=== PATIENT | female | born 1980 | race Caucasian/White ===

== ENCOUNTER → 2022-01-10 | Outpatient (CLI) | payer MEDICAID, SELFPAY ==
[2022-01-19 14:50] LABS: HPV APTIMA, High Risk Negative (Negative)
== END | disposition home or self-care (01) ==
PROVIDERS: Visit Provider Nurse Practitioner Women's Health
DX: Z12.4 Encounter for screening for malignant neoplasm of cervix (principal)
CPT/HCPCS: 87624; 88175; G0145

== ENCOUNTER → 2022-02-09 | Outpatient (CLI) | payer MEDICAID, SELFPAY ==
--- NOTE | 2022-02-09 12:24 | BI_ITS ---
MAMMOGRAPHY - BILATERAL SCREENING REASON FOR EXAM: Female, 41 years old. Routine annual screening examination. PERTINENT HISTORY: Non-contributory. Prior bilateral breast reduction surgery. TECHNIQUE: Digital bilateral breast uday (3D mammographic acquisition) in the CC and MLO projections. 2-D mediolateral oblique (MLO) and craniocaudad (CC) views of both breasts were obtained. CAD: Full Field Digital Mammography with Computer Added Detection was performed. COMPARISON: None. Baseline examination. FINDINGS: Breast Composition: There are scattered areas of fibroglandular density. There are no dominant masses or suspicious calcifications. Small benign appearing bilateral axillary lymph nodes. No other significant abnormalities are identified. BI/SCRN MAMM (CAD)W/UDAY BILAT IMPRESSION: Negative screening mammogram. Yearly followup mammogram recommended. (A) ASSESSMENT CATEGORY: BIRADS Category 2: Benign. A letter regarding these results will be sent to the patient by the facility within 30 days. Approximately 10% of breast cancers are not detected by mammography. A normal mammogram should not delay biopsy of a clinically suspicious abnormality. [id number] Electronically Signed: Jacky Harmon MD at 13:04 EST ,
== END | disposition home or self-care (01) ==
LOC: OPBI 12:20
PROVIDERS: Referring Provider Nurse Practitioner Women's Health; Visit Provider Nurse Practitioner Women's Health
DX: Z12.31 Encounter for screening mammogram for malignant neoplasm of breast (principal)
CPT/HCPCS: 77063; 77067

== ENCOUNTER → 2022-02-13 | Outpatient (CLI) | payer MEDICAID, SELFPAY ==
--- NOTE | 2022-02-13 12:30 | US_ITS ---
STUDY: ULTRASOUND OF THE FEMALE PELVIS - COMPLETE REASON FOR EXAM: Female, 41 years old. Menorrhagia LMP: 01/13/2022 TECHNIQUE: Transabdominal and Transvaginal TECHNICAL QUALITY: Adequate. COMPARISON: None. FINDINGS: The uterus is anteverted and is in a midline position. The uterus measures 10.9 x 6.3 x 5.1 cm. Normal uterine cervix. The endometrium measures 6 mm in thickness, and is hyperechoic. There is no demonstrated endometrial mass. There is no demonstrated myometrial mass. I.U.D. - The patient does not have an I.U.D. The right ovary is visualized. The right ovary measures 3.6 x 3.4 x 3.3 cm. There is no right ovarian cyst or ovarian mass. There is no visualized right adnexal mass or complex lesion. There is normal arterial and normal venous vascularity. The left ovary is visualized. The left ovary measures 2.4 x 2.1 x 2.0 cm. There is no left ovarian cyst or ovarian mass. There is no visualized left adnexal mass or complex lesion. There is normal arterial and normal venous vascularity. There is no fluid in the cul-de-sac. The pre void volume of the bladder was ml. The post void volume of the bladder was ml. Polycystic ovary disease: No. US/Pelvic (Non ) IMPRESSION: Normal female pelvis. Electronically Signed: Livan Gupta MD at 17:19 EST ,
== END | disposition home or self-care (01) ==
LOC: OPUS 12:28
PROVIDERS: Visit Provider Nurse Practitioner Women's Health
DX: N92.0 Excessive and frequent menstruation with regular cycle (principal)
CPT/HCPCS: 76830; 76856

== ENCOUNTER → 2023-03-19 | Outpatient (CLI) | payer MEDICAID, SELFPAY ==
--- NOTE | 2023-03-19 | EMB_PTH ---
PATHOLOGY RESULTS PATIENT: LUPILLO YARBROUGH LOC: [facility] U#:[id number] AGE/SX: 42/F ROOM: RE03/19/[address]: KEMAL Ortega : 1980 BED: DIS: 03/19/2023 SPEC #: [id number] RECD: 03/20/23 07:34 STATUS: MELISSA ASTON #: [id number] HAWA: 03/19/23 00:[address]: Adela Gonsalez NP DEPT: SURGICAL PATHOLOGY RECD BY: Ludmila Burks ENTERED: 03/20/23 07:35 SP TYPE: ENDOM BX/C ANTONIA DR: Susy Primary Care Phys Tissues: Endometrium, NOS Uterine cervix, NOS Procedures: Surgery Specimen Level IV HEADER OPERATION: Endometrial biopsy and cervical polypectomy PRE-OP DIAGNOSIS: Abnormal uterine bleeding TISSUE SUBMITTED: A - Endometrial lining, B - Cervical polyp MICROSCOPIC DIAGNOSIS A. Endometrial biopsy: Weakly secretory endometrium and exogenous hormone effect with glandular and stromal breakdown. Focal minimal chronic endometritis. See comment. B. Cervical polyp, polypectomy: Inflamed benign endocervical polyp. NAVID:sky 03/21/2023 COMMENT A. Clinical correlation and appropriate follow up are necessary. MICROSCOPIC DESCRIPTION Slides are reviewed. GROSS DESCRIPTION A - Received in fixative is one container labeled with the patient's name and designated endometrial lining. The specimen consists of multiple fragments of hemorrhagic soft tissue mixed with bocanegra mucoid tissue that in aggregate measure 3.0 x 2.5 x 0.3 cm. The specimen is totally submitted in one cassette. B - Received in fixative is one container labeled with the patient's name and designated cervical polyp. The specimen consists of a piece of bocanegra-pink polyp measuring 0.5 x 0.3 x 0.1 cm. Also present in the container are multiple fragments of hemorrhagic mucoid tissue measuring in aggregate 1.5 x 0.5 x 0.1 cm. The entire specimen is submitted in one cassette. / NAVID:sky 03/20/2023 TC:5 CPT: [id number] x2
== END | disposition home or self-care (01) ==
LOC: LABSPEC 14:38
PROVIDERS: Referring Provider Nurse Practitioner Women's Health; Visit Provider Nurse Practitioner Women's Health
DX: N93.9 Abnormal uterine and vaginal bleeding, unspecified (principal)
CPT/HCPCS: 88305

== ENCOUNTER → 2023-12-31 | Outpatient (CLI) | payer MEDICAID, SELFPAY ==
--- NOTE | 2023-12-31 09:43 | BI_ITS ---
MAMMOGRAPHY - BILATERAL SCREENING REASON FOR EXAM: Female, 43 years old. Routine annual screening examination. PERTINENT HISTORY: Non-contributory. History of prior bilateral breast reduction surgery. TECHNIQUE: Digital bilateral breast uday (3D mammographic acquisition) in the CC and MLO projections. 2-D mediolateral oblique (MLO) and craniocaudad (CC) views of both breasts were obtained. CAD: Full Field Digital Mammography with Computer Added Detection was performed. COMPARISON: Comparison is made with prior study dated February 09, 2022. FINDINGS: Breast Composition: There are scattered areas of fibroglandular density. There are no dominant masses or suspicious calcifications. Stable small benign appearing bilateral axillary lymph nodes. No other significant abnormalities are identified. There has been no significant change since the prior study. BI/SCRN MAMM (CAD)W/UDAY BILAT IMPRESSION: Stable bilateral screening mammogram. Yearly follow-up mammogram recommended. (A) ASSESSMENT CATEGORY: BIRADS Category 2: Benign. A letter regarding these results will be sent to the patient by the facility within 30 days. Approximately 10% of breast cancers are not detected by mammography. A normal mammogram should not delay biopsy of a clinically suspicious abnormality. [id number] Electronically Signed: Jacky Harmon MD at 10:46 EDT ,
--- OUTSIDE RECORDS SUMMARY | 2023-12-31 10:11 | XMS RPT_ITS | CCD ---
Author Organization [facility] Care Team Providers Care Carpenter Helper Maintenance Name Role Phone ANÍBAL GRIJALVA Admitting Unavaila ble Encounters Encounter Date Encounter Type Care Provider Facility Start: 06-07-2021 End: 06-11-2021 ambulatory ANÍBAL GRIJALVA [facility] Payers Date Payer Category Payer Medicaid [id number] 1980 Unknown [id number] Summary Purpose Family History No Family History Records Found Advance Directives No Advanced Directives Records Found Additional Source Comments INFORMATION SOURCE (unrecogn ized section and content) DATE CREATED AUTHOR 06/12/2021 [place] [facility] FOR RECORDS PERTAINING TO PATIENTS WHO ARE OR HAVE BEEN ENROLLED IN A CHEMICAL DEPENDENCY/SUBSTANCEABUSE PROGRAM, SOME INFORMATION MAY BE OMITTED. This clinical summary was aggregated from multiple sources. Caution should be exercised in using it in the provision of clinical care. This summary normalizes information from multiple sources, and as a consequence, information in this document may materially change the coding, format and clinical context of patient data. In addition, data may be omitted in some cases. CLINICAL DECISIONS SHOULD BE BASED ON THE PRIMARY CLINICAL RECORDS. [facility] [employer] provides no warranty or guarantee of the accuracy or completeness of information in this document.
== END | disposition home or self-care (01) ==
LOC: OPBI 09:43
PROVIDERS: Referring Provider Nurse Practitioner Women's Health; Visit Provider Nurse Practitioner Women's Health
DX: Z12.31 Encounter for screening mammogram for malignant neoplasm of breast (principal)
CPT/HCPCS: 77063; 77067

== ENCOUNTER → 2024-02-04 | Outpatient (CLI) | payer MEDICAID, SELFPAY ==
--- NOTE | 2024-02-04 14:42 | US_ITS ---
INDICATION: bleeding EXAMINATION: Ultrasound US Pelvis Non OB Complete With Transvaginal Imaging TECHNIQUE: Transabdominal and transvaginal pelvic ultrasound was performed. Grayscale, spectral waveform, and color flow Doppler evaluation of the adnexa. COMPARISON: FINDINGS: UTERUS: Anteverted. The uterus measures 10.9 x 6.0 x 5.3 cm. There is no uterine mass. The endometrial stripe measures 13.2 mm in AP diameter with heterogeneity. Nabothian cysts. RIGHT OVARY: 3.1 x 2.7 x 1.9 cm. 1.7 cm cyst or dominant follicle. There is normal arterial inflow and venous outflow present in the right ovary. LEFT OVARY: 3.2 x 2.3 x 1.3 cm. Non-enlarged, normal echogenicity. There is normal arterial inflow and venous outflow present in the left ovary. FREE FLUID: None. US/Pelvic w/ Transvaginal IMPRESSION: Slightly thickened heterogeneous endometrium. Nabothian cysts. Electronically Signed: George Eddy DO at 9:59 EST Reading Location ID and State: [facility] / [place] Tel [phone], Service support ,
== END | disposition home or self-care (01) ==
LOC: US 14:41
PROVIDERS: Referring Provider Nurse Practitioner Women's Health; Visit Provider Nurse Practitioner Women's Health
DX: N92.0 Excessive and frequent menstruation with regular cycle (principal); N85.2 Hypertrophy of uterus
CPT/HCPCS: 76830; 76856

== ENCOUNTER → 2025-01-26 | Outpatient (CLI) | payer MEDICAID, SELFPAY ==
--- NOTE | 2025-01-26 17:09 | BI_ITS ---
EXAM: SCRN MAMM (CAD)W/UDAY BILAT DATE: 01/26/2025 CLINICAL HISTORY: F, Age 44 y/o , SCREENING TECHNIQUE: Procedure Code: [id number] Modality: MG Procedure: SCRN MAMM (CAD)W/UDAY BILAT COMPARISON: Prior exam(s) were compared FINDINGS: TISSUE DENSITY: The breasts are heterogeneously dense, which may obscure small masses. Bilateral Breast Mammographic Findings: No significant masses, calcifications or other abnormalities are identified. BI/SCRN MAMM (CAD)W/UDAY BILAT IMPRESSION: No mammographic evidence of malignancy. OVERALL FINAL ASSESSMENT BI-RADS 1: NEGATIVE. RECOMMENDATION: Routine annual follow-up in 1 Year Additional Recommendation none A letter with findings and recommendations will be mailed to the patient. Reading Location: [id number]
--- OUTSIDE RECORDS SUMMARY | 2025-01-27 07:34 | XMS RPT_ITS | CCD ---
Author Organization [facility] Care Team Providers Care Fishing Vessel Deckhand Name Role Phone ANÍBAL GRIJALVA Admitting Unavaila ble Wallace CAD INTERN, CAD INTERN-C Adela Attending Provider [phone] Care Physician, No Primary Primary Care Provider Unavailable Care Physician, No Primary Referring Provider Un available [place]wood CAD INTERN, CAD INTERN-C Adela Attending Provider Adela Gonsalez Attending Unavailable Care Physician, No Primary Referring Unava ilable Care Physician, No Primary Primary Care Unava ilable WallaceAdela Attending Unavailable Care Physician, No Primary Referring Unava ilable Care Physician, No Primary Primary Care Unava ilable LockwoodAdela Attending Unavailable Wallace, Adela Referring Unavailable Care Physician, No Primary Primary Care Unava ilable Wallace, Adela Attending Unavailable Wallace, Adela Referring Unavailable Care Physician, No Primary Primary Care Unava ilable Medications Current Medications Medication Drug Class(es) Dates Sig (Normalized) Sig (Original) 0.5 ml dulaglutide 3 mg/ml auto-injector (1 source) GLP-1 Receptor Agonist Start: 01-14-2023 Dulaglutide (Trulicity) 1.5 mg/0.5 mL pen injector Active 1.5 MG SC EVERY WEEK January 14, 2023 12:00am norethindrone acetate 5 mg oral tablet (1 source) Start: 03-19-2023 Norethindrone Acetate Active 5 MG PO .COMPLEX 45 March 19, 2023 12:00am 5 mg PO tid until bleeding stops X 24 hr then bid to finish Rx Completed/Discontinued Medications Medication Drug Class(es) Dates Sig (Normalized) Sig (Original) Levonorgestrel-Eth inyl Estrad (13 sources) Progestin, Estrogen, Progestin-containin g Intrauterine Device Start: 01-14-2023 End: 03-19-2023 Levonorgestrel-Ethi nyl Estrad (Altavera (28)) 0.15-0.03 mg tablet Discontinued 1 TABLET PO DAILY January 14, 2023 2:16pm March 19, 2023 2:30pm Start: 05-16-2022 End: 01-14-2023 Levonorgestrel-Ethinyl Estra d (Altavera (28)) 0.15-0.03 mg tablet Discontinued 1 TABLET PO DAILY May 16, 2022 12:00am January 14, 2023 2:16pm Start: 02-14-2022 End: 05-16-2022 take 1 tablet by mouth once daily Levonorgestrel-Ethinyl Estrad (Aviane) 0.1-20 mg-mcg tablet Discontinued 1 TABLET PO daily February 14, 2022 12:00am May 16, 2022 9:43am Start: 02-14-2022 take 1 tablet by julia th once daily Levonorgestrel-Ethinyl Estrad (Aviane) 0.1-20 mg-mcg tablet Active 1 TABLET PO daily February 14, 2022 12:00am Start: 11-28-2017 End: 01-10-2022 take 1 tablet by mouth once daily Levonorgestrel-Ethinyl Estrad (Orsythia) 0.1-20 mg-mcg tablet Discontinued 1 TABLET PO daily November 28, 2017 11:10am January 10, 2022 10:13am Start: 09-09-2017 End: 11-28-2017 take 1 tablet by mouth once daily Levonorgestrel-Ethinyl Estrad (Orsythia) 0.1-20 mg-mcg tablet Discontinued 1 TABLET PO daily 84 September 08, 2017 11:00pm November 28, 2017 11:11am Problems Active Problems Problem Classification Problem Date Documented Date Episodic/Chronic Menstrual disorders (10 sources) Menorrhagia; Translations: [Excessive and frequent menstruation with regular cycle] Onset: 03-05-2024 Chronic Other female genital disorders (4 sources) Disorder of uterine cervix; Translations: [Other specified noninflammatory disorders of cervix uteri] 01-14-2023 Episodic Other female genital disorders (3 sources) Other specified noninflammatory disorders of cervix uteri; Translations: [Other specified noninflammatory disorders of cervix] Episodic Other female genital disorders (1 source) Endocervical polyp; Translations: [Polyp of cervix uteri] 03-19-2023 Episodic Other female genital disorders (1 source) Polyp of cervix uteri; Translations: [Mucous polyp of cervix] 03-19-2023 Episodic Other screening for suspected conditions (not mental disorders or infectious disease) (1 source) Encounter for screening mammogram for malignant neoplasm of breast; Translations: [Encounter for screening mammogram for malignant neoplasm of breast] Onset: 01-11-2025 Episodic Past or Other Problems Problem Classification Problem Date Documented Da te Episodic/Chronic Other female genital disorders (1 source) Hypertrophy of uterus; Translations: [Hypertrophy of uterus] Onset: 01-29-2024 Episodic Results Test Name Value Interpretation Reference Range Facility Pelvic w/ Transvaginalon Pelvic w/ Transvaginal [facility] [address] [place], [place] [address] Pelvic w/ Transvaginal MR#: [id number] Acct: [id number] Name: LUPILLO YARBROUGH Rep #: [id number] : 1980 F 43 From: George Eddy DO PCP: Care Physician,No Primary Status: [facility] Study: Pelvic w/ Transvaginal Date of Exam: 02/04/24 Exam# [id number] Ordering Dr: Adela Gonsalez CAD INTERN CAD INTERN -C [id number] INDICATION: bleeding EXAMINATION: Ultrasound US Pelvis Non OB Complete With Transvaginal Imaging TECHNIQUE: Transabdominal and transvaginal pelvic ultrasound was performed. Grayscale, spectral waveform, and color flow Doppler evaluation of the adnexa. COMPARISON: FINDINGS: UTERUS: Anteverted. The uterus measures 10.9 x 6.0 x 5.3 cm. There is no uterine mass. The endometrial stripe measures 13.2 mm in AP diameter with heterogeneity. Nabothian cysts. RIGHT OVARY: 3.1 x 2.7 x 1.9 cm. 1.7 cm cyst or dominant follicle. There is normal arterial inflow and venous outflow present in the right ovary. LEFT OVARY: 3.2 x 2.3 x 1.3 cm. Non-enlarged, normal echogenicity. There is normal arterial inflow and venous outflow present in the left ovary. FREE FLUID: None. US/Pelvic w/ Transvaginal IMPRESSION: Slightly thickened heterogeneous endometrium. Nabothian cysts. Electronically Signed: George Eddy DO at 9:59 EST Reading Location ID and State: [facility] [place] Tel [phone], Service support , CC: KEMAL Gonsalez; No Primary Care Physician Upward Bound Director: Signed Normal [facility] [place] Office Visit Reporton 01-29-2024 [place] Office Visit Report [facility] [address], [address] [place] [address] OFFICE VISIT Date of Service: 01/29/24 MR#: [id number] Acct: [id number] Name: LUPILLO YARBROUGH Rep #: [id number] : 1980 Provider: KEMAL dominguez Age/Sex: 43/F [place] [facility] [place]: Signed Intake Vital Signs 04/22/23 10:53 01/29/24 09:47 01/29/24 09:51 Height 5 ft 5 ft 5 ft Weight: 175 lb BMI 34.2 BP 114/80 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: Annual Equities Trader Required: No Is patient in pain?: No Allergies No Known Allergies Allergy (Unverified 01/29/24 09:47) Medications ???Medication ???Instructions ???Recorded ???Confirmed ???Type progesterone micronized 100 mg 200 mg (2 x 100 mg) PO .COMPLEX 01/29/24 01/29/24 Rx capsule (Prometrium) #60 caps semaglutide 2 mg/dose (8 mg/3 mL) 2 mg subcut QWEEK 01/29/24 01/29/24 History subcutaneous pen injector Is last menstrual period known: Yes Last Menstrual Period: 01/18/24 Post menopausal: No Patient : No : No PFSH Medical History Endocervical polyp Surgical History H/O bilateral breast reduction surgery S/P Family History Mother Heart disease Seizures Brother Seizures Social History number of children: 2 current occupational status: unemployed current occupation: [employer] Smoking Status: Never smoker alcohol intake: never substance use type: does not use seatbelt use: always do you feel safe at home: Yes additional social history: Fianc???! Charly History 2 Elective abortions Hx Para 2 Spontaneous abortions Hx # Term Pregnancies Ectopic pregnancies Hx # Pregnancies Multiple births # of living children Past Pregnancies Del. Date Name GA/Weeks Outcome Route Bth Weight Gen Labor Lgth Anesthesia Del Locatn Provider FOB 08/15/01 Chava live - full term Male 01/17/06 Ofelia live - full term Female HPI Encounter for routine gynecological examination Details: LUPILLO YARBROUGH is a 43 year old who presents for annual exam. Still having irregular spotting prior to and for several days after menses. Has 2 heavy days. Failed Aviane. Altavera worked X 10 months then recurred. Neg EMB with polypectomy/benign Mar 2023. Took aygestin X 3 weeks then AUB returned. She may consider oral medication again but does not want IUD or surgical intervention. Last PAP: 2021 History of abnormal PAP: no Last mammogram: 12/2023 History of abnormal mammogram: no Colon cancer screening: age 44 Other preventative health care screenings: enc to establish Female Reproductive History Last Menstrual Period: 01/18/24 Questions: metorrhagia: Yes, sexually active: Yes, dyspareunia: No and PCB: No ROS Const Constitutional: Denies fatigue, weight gain or weight loss Cardio Card: Denies chest pain Resp Resp: Denies cough or dyspnea on exertion GI GI: Denies abdominal pain, bloating, change in stool character, constipation or vomiting : Reports as per HPI; Denies difficulty voiding, pelvic pain, urinary frequency, urinary incontinence, urinary urgency, vaginal discharge or vaginal pruritus Exam Const General: cooperative, healthy appearing, no acute distress and well developed Orientation: alert, oriented to person and oriented to place [facility] Head: normal to inspection Neck Neck: normal visual inspection Thyroid: thyroid normal Lymphatic: no lymphadenopathy noted Chest Breast inspection: normal inspection of the breasts and normal inspection of the axillae Breast palpation: normal palpation of the breasts, normal palpation of the axillae and no axillary lymphadenopathy Resp Effort Inspection: normal respiratory effort GI Palpation: soft, no masses and nontender Rectal Exam: deferred External Female Exam: normal external appearance and normal appearance of the urethra Urethra: normal appearance of the urethra and normal palpation Speculum Exam - Vagina: normal appearance of the vagina and normal vaginal discharge Speculum Exam - Cervix: normal appearance of the cervix Bimanual Exam- Vagina Uterus: normal bimanual exam, non-tender, enlarged and nodular on the left Bimanual Exam- Adnexa, other: normal adnexae, no masses, normal and non-tender Pelvic Support: normal Neuro General: patient alert and patient oriented x3 Psych Affect: normal affect Coding Level of Care Code Off vis,est,prev 40-64yrs Diagnoses Encounter for gynecological examination with abnormal finding Z01.411 Gynecol (more content not included)... Normal [facility] Laboratory - Chemistry and C hemistry - challengeon 03-19-2023 HCG ( test) Ql (U) Negative [facility] Cervical or vagninal specime n microscopic examination by cytology stain (reported ason 01-10-2022 Cytology report Cyto stain Doc (Cvx/Vag) Comment . [facility] Work Phone: Comment on above: The Pap smear is a s creening test designed to aid in thedetection of premalignant and malignant conditions of theuterine cervix. It is not a diagnostic procedure andshould not be used as the sole means of detecting cervicalcancer. Both false-positive and false-negative reports dooccur. Detection in cervical specim en of any of human papilloma virus (HPV) 16, 18, 31, 33,on 01-10-2022 HPV 16+18+31+33+35+39+45 +51+52+56+58+59+66+6 8 DNA Probe+sig amp Ql (Cvx) Negative Negative [facility] Work Phone: Comment on above: This nucleic acid am plification test detects fourteen high- risk HPV types (16,18,31,33,35,39,45,51,52,56,58,59,66,68)without differentiation. Laboratory - Cytologyon Enterprise Sales Person Cyto stain Nom (Cvx/Vag) [ID] Comment . [facility] Work Phone: Comment on above: Andrés Molina totechnologist (ASCP) Pathologist Cyto stain Nom (Cvx/Vag) [ID] Comment . [facility] Work Phone: Comment on above: Marianela Scruggs MD, Pa thologist Laboratory - Miscellaneous t estson 01-10-2022 Service comment (Unsp spec) [Interp] Comment . [facility] Work Phone: Comment on above: This liquid based Th inPrep(R) pap test was screened withthe use of an image guided system. Service comment (Unsp spec) [Interp] . . [facility] Work Phone: Liquid-based cerv Pap + CT/G C by ARCELIA w reflex to high-risk HPV for ASCUSon 01-10-2022 Cytology report Cyto stain.thin prep Doc (Cvx/Vag) Comment . [facility] Work Phone: Comment on above: Criteria not met, HP V Genotype not performed.Performed at: - [facility] [id number] Director: Bety Buck MD, Phone: [phone] at: = - [facility] [id number] Director: Bety Buck MD, Phone: [phone] No Panel Informationon 01-10 Pathology report final diagnosis Narrative Comment . [facility] Work Phone: Comment on above: NEGATIVE FOR INTRAEP ITHELIAL LESION OR MALIGNANCY.REACTIVE CELLULAR CHANGES AND/OR REPAIR ARE PRESENT. Vital Signs Date Time Vital Sign Value Performing Clinician Faci lity 03-19-2023 14:05-0500 Body height 152.4 cm No Primary Care Physician [facility] 03-19-2023 13:54-0500 Body mass index (BMI) [Ratio] 34 kg/m2 No Primary Care Physician [facility] 03-19-2023 13:54-0500 Body weight 79.09 kg No Primary Care Physician [facility] 03-19-2023 13:54-0500 Diastolic blood pressure 82 mm[Hg] No Primary Care Physician [facility] 03-19-2023 13:54-0500 Systolic blood pressure 140 mm[Hg] No Primary Care Physician [facility] 01-14-2023 14:09-0500 Body mass index (BMI) [Ratio] 34.2 kg/m2 No Primary Care Physician [facility] 01-14-2023 14:09-0500 Body weight 79.49 kg No Primary Care Physician [facility] 01-14-2023 14:09-0500 Diastolic blood pressure 86 mm[Hg] No Primary Care Physician [facility] 01-14-2023 14:09-0500 Systolic blood pressure 122 mm[Hg] No Primary Care Physician [facility] 01-10-2022 11:04-0400 Body height 152.4 cm CAD INTERN-C Adela Wallace CAD INTERN Work Phone: [facility] Work Phone: 01-10-2022 11:04-0400 Body mass index (BMI) [Ratio] 37.9 kg/m2 CAD INTERN-C Adela Wallace CAD INTERN Work Phone: [facility] Work Phone: 01-10-2022 11:04-0400 Body weight 88.11 kg CAD INTERN-C Adela Wallace CAD INTERN Work Phone: [facility] Work Phone: 01-10-2022 11:04-0400 Diastolic blood pressure 84 mm[Hg] CAD INTERN-C Adela Lockwood CAD INTERN Work Phone: [facility] Work Phone: 01-10-2022 11:04-0400 Systolic blood pressure 130 mm[Hg] CAD INTERN-C Adela Wallace CAD INTERN Work Phone: [facility] Work Phone: Encounters Encounter Date Encounter Type Care Provider Facility Start: 01-26-2025 ambulatory Adela Lockwood Facility :[facility] Start: 05-11-2024 ambulatory Adela Lockwood Facility :[facility] [place] Start: 02-04-2024 End: 02-04-2024 ambulatory Adela Lockwood Facility:[facility] Start: 01-29-2024 End: 01-29-2024 ambulatory [facility] Facility:[facility] [place] Start: 03-19-2023 End: 03-19-2023 ambulatory No Primary Care Physician [facility] Work Phone: Start: 03-19-2023 End: 03-19-2023 Patient encounter procedure No Primary Care Physician [facility] Work Phone: Start: 01-14-2023 End: 01-14-2023 Patient encounter procedure No Primary Care Physician [facility] Work Phone: Start: 02-13-2022 End: 02-13-2022 ambulatory CAD INTERN-C Adela Wallace CAD INTERN Work Phone: [facility] Work Phone: Start: 02-13-2022 End: 02-13-2022 Patient encounter procedure CAD INTERN-C Adela Wallace CAD INTERN Work Phone: [facility] Ul[facility]ound Start: 02-09-2022 End: 02-09-2022 ambulatory CAD INTERN-C Adela Wallace CAD INTERN Work Phone: [facility] Work Phone: Start: 02-09-2022 End: 02-09-2022 Patient encounter procedure CAD INTERN-C Adela Wallace CAD INTERN Work Phone: [facility] Start: 01-10-2022 End: 01-10-2022 ambulatory CAD INTERN-C Adela Lockwood CAD INTERN Work Phone: [facility] Work Phone: Start: 01-10-2022 End: 01-10-2022 Patient encounter procedure CAD INTERN-Raf Gonsalez CAD INTERN Work Phone: [facility]-Laboratory, Specimen Start: 01-10-2022 End: 01-10-2022 Patient encounter procedure CAD INTERN-Raf Gonsalez CAD INTERN Work Phone: [facility] Start: 06-07-2021 End: 06-11-2021 [facility] Date Procedure Procedure Detail Performing Clinician Start: 02-13-2022 Pelvic echography CAD INTERN-Raf Gonsalez CAD INTERN Work Phone: Start: 02-13-2022 Transvaginal echography CAD INTERN-Raf Gonsalez CAD INTERN Work Phone: Start: 02-09-2022 Screening mammography N P-Raf Gonsalez CAD INTERN Work Phone: Plan of Treatment Date Care Activity Detail Author Start: 01-10-2022 Liquid based cervica l cytology screening [facility] Work Phone: MG Breast - bilateral Screening [facility] Work Phone: Path report.final Dx Spec [facility] Work Phone: US Pelvis [facility] Work Phone: US Pelvis transvaginal [facility] Work Phone: Payers Date Payer Category Payer Self-pay [id number] 2024 Unknown [id number] 2012 Medicaid [id number] 1980 Unknown [id number] Unknown [id number] Unknown [id number] [id number] [id number] Unknown [id number] [id number] Unknown [id number] [id number] [id number] Social History Date Type Detail Facility Start: 01-10-2022 End: 03-18-2023 Tobacco smoking status MEIS Unknown if ever smoked [facility] Start: 1980 Sex Assigned At Female [facility] Clinical Note 01-10-2022 Note Date & Type Note Facility 01-10-2022 Note [facility] Work Phone: Pap Smear Specimen Adequacy January 10, 2022 12:36pm Comment . Satisfactory for evaluation. Endocervical and/or squamous metaplasticcells (endocervical component) are present. Comment on above: Satisfactory for amber luation. Endocervical and/or squamous metaplasticcells (endocervical component) are present. Clinical Note 01-10-2022 Note Date & Type Note Facility 01-10-2022 Note [facility] Work Phone: Pap Smear Specimen Adequacy January 10, 2022 12:36pm Comment . Satisfactory for evaluation. Endocervical and/or squamous metaplasticcells (endocervical component) are present. Comment on above: Satisfactory for amber luation. Endocervical and/or squamous metaplasticcells (endocervical component) are present. Evaluation note Note Date & Type Note Facility Evaluation note Diagnosis Onset Date Friable cervix acute Menorrhagia with regular cycle acute Encounter for routine gyneco logical examination noneactive [facility] Work Phone: Evaluation note Note Date & Type Note Facility Evaluation note Diagnosis Onset Date Menorrhagia with regular cycle acute Encounter for routine gyneco logical examination noneactive Endocervical polyp acute Menorrhagia with regular cycle acute [facility] Work Phone: Summary Purpose Family History No Family History Records Found Relationship Condition Age at Onset Recorded Date/T torsten mother Cardiac disease Unknown Seizure Unknown brother Seizure Unknown Advance Directives No Advanced Directives Records FoundNo Advanced Directives Records Found Chief Complaint and Reason for Visit Chief Complaint Annual (NURSING SERVICE DIRECTOR) Reason for Visit Friable cervix Menorrhagia with regular cycle Encounter for routine gynecological examination Chief Complaint Annual (NURSING SERVICE DIRECTOR) MENORRHAGIA MENORRHAGIA Reason for Visit Friable cervix Menorrhagia with regular cycle Encounter for routine gynecological examination Chief Complaint Annual (NURSING SERVICE DIRECTOR) EMB, bleeding pen[facility] through ocp pack AUB Reason for Visit Menorrhagia with reg ular cycle Encounter for routine gynecological examination Endocervical polyp Menorrhagia with regular cycle Additional Source Comments INFORMATION SOURCE (unrecogn ized section and content) DATE CREATED AUTHOR 06/12/2021 [facility] DATE CREATED AUTHOR AUTHOR'S ORGANIZ ATION 01/11/2025 [facility] Goals (unrecognized section and content) Goals may be documented in a n alternate sectionGoals may be documented in an alternate sectionGoals may be documented in an alternate sectionGoals may be documented in an alternate section Care Teams (unrecognized sec tion and content) Team Status: Active Member Role Status Dates Dr. Shekhar Eller MD Family Provider Active No Primary Care Physician Primary Care Provider Active Team Status: Inactive Member Role Status Dates No Primary Care Physician Primary Care Provider, Refer ring Provider Active Adela Gonsalez CAD INTERN, CAD INTERN-C Attending Provider Active Team Status: Inactive Member Role Status Dates No Primary Care Physician Primary Care Provider Active Adela Gonsalez CAD INTERN, CAD INTERN-C Attending Provider, Referring Provider Active FOR RECORDS PERTAINING TO PATIENTS WHO ARE [...] BE BASED ON THE PRIMARY CLINICAL RECORDS. [employer] provides no warranty or guarantee of the accuracy or completeness of information in this document.
== END | disposition home or self-care (01) ==
LOC: OPBI 01-27 07:15
PROVIDERS: Referring Provider Nurse Practitioner Women's Health; Visit Provider Nurse Practitioner Women's Health
DX: Z12.31 Encounter for screening mammogram for malignant neoplasm of breast (principal)
CPT/HCPCS: 77063; 77067